=== PATIENT | female | born 1995 | race Hispanic/Latino ===

== ENCOUNTER 2017-12-08 09:53 | Emergency (ER) | payer OTHER ==
[2017-12-08] MEDS: predniSONE 20 MG TAB PO (10:34)
[2017-12-08] MEDS: FAMOTIDINE 20 MG TAB PO (10:34)
== END 2017-12-08 10:41 | disposition home or self-care (01) ==
LOC: M ED 09:53
DX: L25.8 Unspecified contact dermatitis due to other agents (principal); B36.0 Pityriasis versicolor
CPT/HCPCS: 99282

== ENCOUNTER 2018-01-08 08:11 | Emergency (ER) | payer OTHER ==
[2018-01-08] MEDS: NS 1,000 ML IV ×2 (09:10→11:10)
[2018-01-08 09:13] LABS: BASO % 0.5 % (0.0-1.0); EOS % 0.5 % (0.0-3.0); HEMATOCRIT 39.1 % (36.0-47.0); HEMOGLOBIN 13.1 g/dl (12.0-15.5); IMMATURE GRANULOCYTE % 0.4 % (0-3.0); LYMPH # 1.3 10^3/uL (1.5-6.5); LYMPH % 23.4 % (24.0-44.0); MEAN CORPUSCULAR HEMOGLOBIN 30.5 pg (27.0-33.0); MEAN CORPUSCULAR HGB CONC 33.5 g/dl (32.0-36.5); MEAN CORPUSCULAR VOLUME 90.9 fl (80.0-96.0); MONO # 0.3 10^3/uL (0.0-0.8); MONO % 5.3 % (0.0-5.0); NEUTROPHILS # 3.9 10^3/uL (1.8-7.7); NEUTROPHILS % 69.9 % (36.0-66.0); PLATELET COUNT, AUTOMATED 273 10^3/uL (150-450); RED CELL DISTRIBUTION WIDTH 12.6 % (11.5-14.5); WHITE BLOOD COUNT 5.6 10^3/uL (4.0-10.0)
[2018-01-08 09:26] LABS: CONTROL LINE HCG INT CTR LINE PRESENT; HCG, SERUM QUALITATIVE NEGATIVE (NEGATIVE)
[2018-01-08 09:32] LABS: ANION GAP 10 MEQ/L (8-16); BLOOD UREA NITROGEN 9 MG/DL (7-18); CALCIUM LEVEL 9.1 MG/DL (8.5-10.1); CARBON DIOXIDE LEVEL 23 MEQ/L (21-32); CHLORIDE LEVEL 110 MEQ/L (98-107); CPK CREATINE PHOSPHOKINASE 728 U/L (26-192); CREATININE FOR GFR 1.09 MG/DL (0.55-1.30); GLOMERULAR FILTRATION RATE > 60.0 (>60); GLUCOSE, FASTING 92 MG/DL (70-100); POTASSIUM SERUM 3.9 MEQ/L (3.5-5.1); SODIUM LEVEL 143 MEQ/L (136-145)
[2018-01-08 09:34] LABS: D-DIMER QUANT 272.2 ng/ml (<500)
[2018-01-08] MEDS: ACETAMINOPHEN TAB 650MG DOSE (2X325MG) PO (09:54)
[2018-01-08] MEDS: IPRATROPIUM 0.5MG/ALBUTEROL 2.5MG INH SOL UD 3ML (DUONEB)(J7620) NEB (10:00)
[2018-01-08 10:05] LABS: FREE T4 1.25 NG/DL (0.76-1.46)
[2018-01-08] MEDS: methylPREDNISolone INJ 125 MG/2 ML VIAL (J2930) IV (11:10)
== END 2018-01-08 12:35 | disposition home or self-care (01) ==
LOC: M ED 08:11
DX: E86.0 Dehydration (principal); R06.00 Dyspnea, unspecified; R00.0 Tachycardia, unspecified; J45.909 Unspecified asthma, uncomplicated; F41.9 Anxiety disorder, unspecified; M54.5 Low back pain; Z79.3 Long term (current) use of hormonal contraceptives
CPT/HCPCS: J2930

== ENCOUNTER 2018-06-19 09:46 | Emergency (ER) | payer OTHER ==
[~2018-06-19] VITALS: Ht 160 cm; Wt 74.1 kg
[2018-06-19 09:46] VITALS: BP 129/66
[~2018-06-19 09:46] MED LIST: BENA25CA4 PO; KETO2AER2 EXT; PRED20TA PO; PRED50TA PO; PROAAER10; bcp
[2018-06-19] MEDS ORDERED: NASA30TA PO (09:59)
[2018-06-19] MEDS ORDERED: AMOX-CLAV PO (09:59)
[2018-06-19] MEDS ORDERED: VENL50TA2 PO (09:59)
[2018-06-19] MEDS ORDERED: MUCI600T37 PO (10:21)
[2018-06-19] MEDS ORDERED: SUDA1TAB3 PO (10:21)
[2018-06-19] MEDS ORDERED: FLON1SPR NARES (10:21)
[2018-06-19] MEDS ORDERED: IBUP-1022 PO (10:21)
== END 2018-06-19 10:33 | disposition home or self-care (01) ==
LOC: M ED 09:46
DX: R51 Headache (principal); Z79.899 Other long term (current) drug therapy; Z79.2 Long term (current) use of antibiotics

== ENCOUNTER 2018-08-07 11:26 | Emergency (ER) | payer OTHER ==
[~2018-08-07] VITALS: Ht 160 cm; Wt 77.4 kg
[~2018-08-07 11:26] MED LIST changes: +AMOX-CLAV PO; +FLON1SPR NARES; +IBUP-1022 PO; +MUCI600T37 PO; +NASA30TA PO; +SUDA1TAB3 PO; +VENL50TA2 PO
[2018-08-07] MEDS ORDERED: PRENCHW PO (11:37)
[2018-08-07 12:49] LABS: HEMATOCRIT 35.5 % (36.0-47.0); HEMOGLOBIN 11.8 g/dl (12.0-15.5); MEAN CORPUSCULAR HEMOGLOBIN 30.5 pg (27.0-33.0); MEAN CORPUSCULAR HGB CONC 33.2 g/dl (32.0-36.5); MEAN CORPUSCULAR VOLUME 91.7 fl (80.0-96.0); PLATELET COUNT, AUTOMATED 211 10^3/uL (150-450); RED BLOOD COUNT 3.87 10^6/uL (4.00-5.40); WHITE BLOOD COUNT 7.1 10^3/uL (4.0-10.0)
[2018-08-07 13:30] LABS: ABG BASE EXCESS -1.8 (-2.0-2.0); ABG HCO3 20.7 MEQ/L (22.0-26.0); ABG O2 SATURATION 98.8 % (95.0-99.0); ABG PARTIAL PRESSURE CO2 28.4 mmHg (35.0-45.0); ABG PARTIAL PRESSURE O2 122.9 mmHg (75.0-100.0); ABG TOTAL CO2 21.5 MEQ/L (22.0-29.0)
[2018-08-07 13:30] LABS: BLOOD UREA NITROGEN 8 MG/DL (7-18); CALCIUM LEVEL 8.8 MG/DL (8.5-10.1); CARBON DIOXIDE LEVEL 25 MEQ/L (21-32); CHLORIDE LEVEL 106 MEQ/L (98-107); CK-MB VALUE MASS < 1.0 NG/ML (<3.6); CPK CREATINE PHOSPHOKINASE 72 U/L (26-192); CREATININE FOR GFR 0.49 MG/DL (0.55-1.30); GLOMERULAR FILTRATION RATE > 60.0 (>60); GLUCOSE, FASTING 79 MG/DL (70-100); MB/CK RELATIVE INDEX 1.39 (< OR =4); SODIUM LEVEL 138 MEQ/L (136-145); TROPONIN I < 0.02 NG/ML (< 0.10)
[2018-08-07 14:59] VITALS: O2SAT 100
[2018-08-07 16:00] VITALS: BP 111/54
--- NOTE | 2018-08-07 16:04 | REP ---
FIRST TRIMESTER ULTRASOUND: Real-time sonographic evaluation of the gravid uterus is performed. There is a single living intrauterine gestation. The estimated gestational age is 9 weeks 5 days based on a crown rump length of 29 mm. EDC 03/07/2019. heart rate 168 beats per minute. There is no subchronic hemorrhage. No maternal adnexal region abnormality is seen. Electronically Signed by Guerrero Hector MD 08/12/2018 09:12 A
--- NOTE | 2018-08-07 20:44 | ECGEPIP ---
Stationary ECG Study [facility] - ED Test Date: 2018-08-07 Pat Name: LUIS ROBERTS Department: Room: - Gender: F Dismantler: CT : 1995 Requested By: Bryce Daniel Order Number: [id number] Reading MD: Bryce Calix Measurements Intervals [place] Rate: 46 P: 66 MI: 149 QRS: 64 QRSD: 92 T: 26 QT: 423 QTc: 371 Interpretive Statements SINUS BRADYCARDIA WITH SINUS ARRHYTHMIA BENIGN EARLY REPOLARIZATION NSTTW ABNORMALITIES SIMILAR TO 01/08/18 Electronically Signed On 08-07-2018 20:44:30 EDT by Bryce Calix
== END 2018-08-07 16:19 | disposition home or self-care (01) ==
LOC: M ED 11:26
DX: R06.09 Other forms of dyspnea (principal); Z33.1 Pregnant state, incidental

== ENCOUNTER 2019-01-29 18:51 | Outpatient (CLI) | payer OTHER ==
[~2019-01-29] VITALS: Ht 160 cm; Wt 86.5 kg
[~2019-01-29 18:51] MED LIST changes: +PRENCHW PO
[2019-01-29 19:05] VITALS: BP 117/62
--- NOTE | 2019-01-30 09:21 | HPE ---
DATE OF ADMISSION: 01/29/2019 23-year-old 1. 05/29/2018 EDC 03/05/2019 35 and 5 weeks of gestation with a history of 2 days of no movement. Risk factor she has anxiety, depression on Zoloft. LABORATORY DATA: A+, HIV negative, hep negative, RPR negative, rubella immune. Varicella immune. 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 Gonorrhea and chlamydia negative. An early 1-hour glucose was 100, 28-week glucose was 129. GBS is not available. PHYSICAL EXAMINATION: No distress. Symphysis fundus height is 35, vertex presenting. Category one strip. No contractions. No vaginal loss or bleeding. Blood pressure 117/62, respirations 18, pulse 62 and temperature 98.5. Urine is 1005 pH 7 and negative. The rest of the examination is unremarkable. Normocephalic, atraumatic. Neck: Full range of motion. Pupils equal and reactive to light. Distal pulses symmetric. No evidence of DVT, PE or superficial phlebitis. Chest is clear bilaterally bases, No wheezes or rhonchi. No CVA tenderness. No rashes, lesions or pruritus. No arthralgia, myalgia. No complaint joint pain. No complaint cough, wheeze, shortness of breath or dyspnea on exertion. 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 MEDICATIONS: and Zoloft. We discussed kick chart, premature rupture of membranes and bleeding, when to call the provider, when to come in. The patient has a centering appointment next week. She is to maintain that appointment and otherwise she is discharged undelivered with precautions.
== END 2019-01-29 20:45 | disposition home or self-care (01) ==
LOC: M LDO 18:51
PROVIDERS: ATTEND Advanced Practice Midwife
DX: O36.8130 Decreased fetal movements, third trimester, not applicable or unspecified (principal); Z3A.35 35 weeks gestation of pregnancy
CPT/HCPCS: 59025; G0378; G0463

== ENCOUNTER 2019-03-01 04:00 | Inpatient (IN) | payer OTHER ==
[~2019-03-01] VITALS: Ht 160 cm; Wt 88.1 kg
[2019-03-01] VITALS (32 sets, daily range): BP systolic 107–150; BP diastolic 55–94
[2019-03-01] MEDS ORDERED: LACTATED RINGER'S 1000 ML IV STA (06:22)
[2019-03-01] MEDS ORDERED: PENICILLIN G POTASSIUM IV 5 MU in D5W MINI-BAG PLUS 100 ML IV STA (06:22)
--- NOTE | 2019-03-01 06:39 | HPEPDOC ---
Obstetrical History & Physical General Date of Admission Mar 01, 2019 at 06:23 History of Present Illness 23 yo at 39+3 weeks today by LMP of 29May2018 c/w 8+5 week US on 29Jul2018 presented to L&D with the complaint of leakage of clear fluid starting at 0200 this AM and contractions. She denies any bleeding. She endorses movement. Chief Complaint: Contractions, term, LOF, term Information Provided By: Patient Age: 23 : 1 Term: 0 Pre-term: 0 Abortions: 0 Livin Care Care: Good Care Dating Final EDC: Mar 05, 2019 Final EDC for Daily Update: Mar 05, 2019 Final EDC by: LMP (LMP of 29May2018) LMP: May 29, 2018 1st Trimester Date: Jul 29, 2018 (8+5 week US on 29Jul2018 c/w LMP dating. DINORAH remains 05Mar2019) Antepartum Course Diagnos(e)s Overweight --> Normal glucose screening Depression/Anxiety --> stable with zoloft and counseling Childhood asthma --> no meds pelviectasis --> resolved with follow up imaging Past Medical History Past Obstetrical History : Past Obstetrical History: [facility] [employer] History: No pertinent history Past Medical History Medical History Depression/Anxiety Overweight Childhood asthma Surgical History: Cleves teeth Family History Significant Family History: No pertinent family hx Family History Non contributory Social History Marital Status: Family situation: Spouse/partner home Psychosocial History: Anxiety, Depression * Smoker: non-smoker Alcohol: Denies Drugs: denies Imunizations Tdap status: current Influenza Status: current Allergies Coded Allergies: No Known Allergies (Unverified , 03/01/19) Medications Scheduled Pnv No.118/Iron Fumarate/FA ( 19 Chewable Tablet) 1 Chw Chw, 1 TAB PO DAILY Physical Examination Physical Examination Chaperoned by L&D RN GENERAL: Alert and oriented times three. ABDOMEN: Gravid and non-tender to touch. FETUS: Is vertex (VTX) by sterile vaginal examination (SVE), fetus is vertex (VTX) by [place]. EXTREMITIES: No edema. Pelvic exam - Wet external genitalia. Speculum inserted into the vagina. Gross pooling of clear fluid seen in vaginal vault. Swabs obtained. Speculum removed. Nitrazine - positive Ferning slide - positive Vital Signs/I&O Vital Signs Date Time Temp Pulse Resp B/P (MAP) Pulse Ox O2 Delivery O2 Flow Rate FiO2 03/01/19 05:33 68 18 131/86 (101) 03/01/19 04:30 97.6 Laboratory Data Urine Culture: No Growth Pertinent Laboratoy Data Blood Type: A+ RBC Antibody Screen: Negative HIV: Negative Hepatitis B: Negative Hepatitis C: Unknown Rapid Plasma Reagin: Nonreactive Rubella: Immune Varicella: Immune Chlamydia/Gonorrhea: Negative Group B Streptococcus: Positive Quad Screen Test: Unknown Cystic Fibrosis: Negative Glucose Tolerance Test: 129 (early 1hr GTT 100, then 129 at 24-28 weeks) Anatomy Ultrasound Placenta Location: Posterior Normal Anatomy: Yes ( bilateral pelviectasis resolved with repeat imaging) Placenta Previa: No Steroid Therapy Steroid Therapy: No Vaginal Examination Dilation: 3 cm Effacement: 80% Station: -2 Cervical Consistency: Soft Cervical Position: Posterior Presentation: Cephalic presentation Position: Vertex (occiput) Assessment Heart Rate (FHR): 135 Variability: Moderate Accelerations: Positive Decelerations: None Tocometer Contractions: Yes Frequency: irregular Strength: palpated as moderate Assessment/Plan Assessment 23 yo at 39+3 weeks gestation presented with ruptured membranes and early labor. Plan Admit to L&D for expectant management of labor. Will augment as clinically indicated. Apply IV fluids. CBC, T+S Start PCN for GBS prophylaxis. Regular diet. Patient may have epidural if desired. We discussed augmentation of labor with pitocin if necessary. Anticipate . DO RANDOLPH Gabriel CHRISTOPHER J. DO Mar 01, 2019 06:39
[2019-03-01 07:28] LABS: HEMATOCRIT 33.3 % (36.0-47.0); HEMOGLOBIN 11.3 g/dl (12.0-15.5); MEAN CORPUSCULAR HEMOGLOBIN 31.1 pg (27.0-33.0); MEAN CORPUSCULAR HGB CONC 33.9 g/dl (32.0-36.5); MEAN CORPUSCULAR VOLUME 91.7 fl (80.0-96.0); PLATELET COUNT, AUTOMATED 223 10^3/uL (150-450); RED BLOOD COUNT 3.63 10^6/uL (4.00-5.40); WHITE BLOOD COUNT 9.6 10^3/uL (4.0-10.0)
[2019-03-01] MEDS ORDERED: FENTANYL 2MCG/ML ROPIVACAINE 0.2% IN 0.9% NACL 100ML IVBAG As Ordered ONE (08:48)
[2019-03-01] MEDS: LR 1,000 ML IV SCH ×3 (08:59→19:37)
[2019-03-01] MEDS: FENTANYL/ROPIVACAINE/NACL BAG 100 ML EPIDURAL SCH ×2 (09:42→17:34)
[2019-03-01] MEDS ORDERED: EPIDURAL COMMENT XX SCH (10:45)
[2019-03-01] MEDS ORDERED: ePHEDrine SULFATE 25 MG/5 ML(5MG/ML) SYRINGE IV PRN (10:45)
[2019-03-01] MEDS ORDERED: ONDANSETRON 4MG/2ML VIAL (J2405) IV PRN (10:45)
[2019-03-01] MEDS ORDERED: diphenhydrAMINE INJ 50MG/ML VIAL (J1200) IV PRN (10:45)
[2019-03-01] MEDS ORDERED: LACTATED RINGER'S 1000 ML IV PRN (10:45)
[2019-03-01] MEDS ORDERED: EPIDURAL/PCA KEYS XX PRN (10:45)
[2019-03-01] MEDS ORDERED: NALOXONE INJ 0.4 MG/1 ML VIAL (J2310) IV PRN (10:45)
[2019-03-01] MEDS ORDERED: REFRIGERATOR IV KEYS XX PRN (10:45)
[2019-03-01] MEDS ORDERED: OXYTOCIN DRIP 30 UNITS in IV 1 EA IV SCH ×2 (11:15→21:45)
[2019-03-01] MEDS: PENICILLIN G POTASSIUM IV 2.5 MU in IV 1 EA IV SCH ×3 (11:36→19:45)
--- NOTE | 2019-03-01 19:16 | IPNPDOC ---
Obstetrical Progress Note Date of Service Mar 01, 2019 Subjective 23 yo at 39+3 admitted for PROM at 0200 this AM. She was augmented with pitocin and was turned off due to recurrent variable decel. she had received amnioinfusion which helped resolved the variable decels. Currently alma rosa on her own. Last checked to be 9.5cm with anterior lip at around 1800. patient feeling pressure with contractions. vitals: normal nad, laying in bed fht: 145/mod stephon/no accel/no decel IUPC: 150-180 MVU a/p patient in active labor. recheck 2 hrs after last check, sooner as indicated. continue pcn for gbs positive. DO Leandra Objective Vital Signs Date Time Temp Pulse Resp B/P (MAP) Pulse Ox O2 Delivery O2 Flow Rate FiO2 03/01/19 18:41 70 18 137/75 (95) 03/01/19 18:11 98.2 03/01/19 17:08 99 Assessment Heart Rate (FHR): 145 Variability: Moderate Accelerations: None Decelerations: None Heart Rate Tracing: Category I Tocometer Contractions: Yes DUTCH RAMIREZ DO Mar 01, 2019 19:15
--- NOTE | 2019-03-01 20:36 | IPNPDOC ---
Obstetrical Progress Note Date of Service Mar 01, 2019 Subjective patient comfortable with epidural. fht: 140/mod stephon/pos accel/no decel toco: 150-180 MVU's ce: c/c/+2 a/p patient at stage 2. trial of push to start. continue with pushing if patient brings baby down well. may need to allow for passive descent for 1 hr if patient does not push well. DO Leandra Objective Vital Signs Date Time Temp Pulse Resp B/P (MAP) Pulse Ox O2 Delivery O2 Flow Rate FiO2 03/01/19 18:41 70 18 137/75 (95) 03/01/19 18:11 98.2 03/01/19 17:08 99 Tocometer Contractions: Yes Sterile Vaginal Examination Dilation: complete Effacement (%): 100% Station: +2 Cervical Consistency: Soft DUTCH RAMIREZ DO Mar 01, 2019 20:36
[2019-03-01] MEDS ORDERED: MEASLES,MUMPS,RUBELLA VACCINE INJ (MMR-II) (90707) SC SCH (21:45)
[2019-03-01] MEDS ORDERED: ACETAMINOPHEN TAB 650MG DOSE (2X325MG) PO PRN (21:45)
[2019-03-01] MEDS ORDERED: DIBUCAINE 1% OINTMENT 30GM TOP PRN (21:45)
[2019-03-01] MEDS ORDERED: RHOGAM 300 MCG (1500 IU) INJ (J2790) IM SCH (21:45)
[2019-03-01] MEDS ORDERED: DOCUSATE SODIUM 100 MG CAP PO PRN (21:45)
--- NOTE | 2019-03-01 21:45 | DNPDOC ---
[facility] Delivery Note Delivery Note DATE OF DELIVERY: 01Mar2019 PREDELIVERY DIAGNOSIS: 39+3wks gestation POST DELIVERY DIAGNOSIS: Delivered. PROCEDURE: PAUL ENGLISH AND READING INSTRUCTOR: Dr. Melissa Mobley DO ANESTHESIA: epidural. ESTIMATED BLOOD LOSS: mL. FINDINGS: 7 pound 3 ounce (3260gm) male , Score 7/8 DELIVERY SUMMARY: With good maternal effort baby delivered OA, restituted LOT. anterior shoulder delivered followed by posterior shoulder and compound left hand. body followed with ease. baby placed on maternal abdomen, cord allowed to stop pulsating. cord clamped x 2 and cut by FOB. pitocin bolus started. placenta delivered spontaneously. fundus massaged firm. inspection reveals 2nd degree mild laceration repaired with 2-O and 3-O vicryl. EBL 200cc. Baby and mother bonding when I left the room. DO ASHLEY Mobley LUAT N. DO Mar 01, 2019 21:45
[2019-03-01] MEDS: IBUPROFEN 800 MG TAB PO PRN (23:57)
--- NOTE | 2019-03-02 05:27 | IPNPDOC ---
Progress Note Date of Service: Mar 02, 2019 Day#: 1 Progress Note SUBJECT: patient is a G1 now p1 status post uncomplicated spontaneous vaginal delivery with post 2nd degree vaginal laceration and repair ppd #2. She has been ambulating, voiding spontaneously without issue and tolerating regular diet. Having some issues with breast feeding. Reports lochia is like a normal period. Denies WILD/N/V/Change in vision. Plans for norqd for contraceptive. OBJECTIVE: VITAL SIGNS: noted some mild range, afebrile. Alert and oriented times three. Abdomen: Fundus firm at U-2. Soft, NTTP. ASSESSMENT: Patient is ppd #1, doing well. Noted mild range BP, asymptomatic. PLAN: 1. continue routine ppc. 2. monitor BP 3. minipill for contraception 4. instructions for spouse to supervisor opening and picking meds at [facility] 5. encourage bf consult to see patient today and ambulating 6. anticipate d/c home ppd #2 arash, VS, I&O, 24H, Fishbone Vital Signs/I&O Vital Signs Date Time Temp Pulse Resp B/P (MAP) Pulse Ox O2 Delivery O2 Flow Rate FiO2 03/01/19 23:50 97.8 54 16 150/86 (107) 99 I&O- Last 24 Hours up to 6 AM 03/02/19 05:59 Intake Total 4150 ml Output Total 2125 ml Balance 2025 ml Laboratory Data 24H LABS Laboratory Tests 2 03/01/19 06:29: Serology Scanned Report Hepatitis B Testing 03/01/19 07:03: Nucleated Red Blood Cells % (auto) 0.0, Syphilis Serology NONREACTIVE CBC/BMP Laboratory Tests 03/01/19 07:03 Red Blood Count 3.63 L, Mean Corpuscular Volume 91.7, Mean Corpuscular Hemoglobin 31.1, Mean Corpuscular Hemoglobin Concent 33.9, Red Cell Distribution Width 12.7 DUTCH RAMIREZ DO Mar 02, 2019 05:27
[2019-03-02 06:00] VITALS: BP 135/77
[2019-03-02] MEDS: PRENATAL VITAMINS CHEWABLE TABLET PO SCH (11:21)
[2019-03-02 18:00] VITALS: BP 135/93
[2019-03-02] MEDS: IBUPROFEN 800 MG TAB PO PRN (19:55)
[2019-03-03 06:12] VITALS: BP 129/76
[2019-03-03 06:19] LABS: HEMOGLOBIN 10.2 g/dl (12.0-15.5); MEAN CORPUSCULAR HEMOGLOBIN 30.9 pg (27.0-33.0); MEAN CORPUSCULAR VOLUME 90.9 fl (80.0-96.0); PLATELET COUNT, AUTOMATED 200 10^3/uL (150-450); WHITE BLOOD COUNT 7.5 10^3/uL (4.0-10.0)
[2019-03-03 06:48] LABS: ALBUMIN 2.1 GM/DL (3.2-5.2); ALT/SGPT 22 U/L (12-78); BILIRUBIN,TOTAL 0.4 MG/DL (0.2-1.0); BLOOD UREA NITROGEN 7 MG/DL (7-18); CARBON DIOXIDE LEVEL 27 MEQ/L (21-32); CHLORIDE LEVEL 109 MEQ/L (98-107); CREATININE FOR GFR 0.57 MG/DL (0.55-1.30); GLOMERULAR FILTRATION RATE > 60.0 (>60); GLUCOSE, FASTING 69 MG/DL (70-100); POTASSIUM SERUM 3.5 MEQ/L (3.5-5.1); SODIUM LEVEL 143 MEQ/L (136-145); TOTAL PROTEIN 4.9 GM/DL (6.4-8.2)
--- NOTE | 2019-03-03 07:10 | DS.PDOC ---
Discharge Summary General Date of Admission Mar 01, 2019 at 06:23 Date of Discharge Mar 03, 2019 Attending Physician: Yenni Rodriguez MD Specialist/Consultants Involve: A Specialist/Consultants Involve Anesthesia Discharge Summary PROCEDURES PERFORMED DURING STAY: Pitocin Augmentation, External Female Monitoring, Spontaneous Vaginal Delivery, Care ADMITTING DIAGNOSES: 1. Spontaneous Rupture of Membranes DISCHARGE DIAGNOSES: 1. Vaginal Delivery COMPLICATIONS/CHIEF COMPLAINT: Labor Check. HISTORY OF PRESENT ILLNESS: 23y/o presenting for contractions and leakage of fluid at term. HOSPITAL COURSE: Ms. Mendoza is a 23y/o who was admitted for SROM. Following Pitocin augmentation, she proceeded to have an uncomplicated of 3260 Female , with Apgars 7/8. She had a second degree laceration. EBL 2 00cc. The patient had an course notable for several mild range blood pressures. She had an otherwise uncomplicated course. On the day of discharge, she was tolerating regular diet, voiding without difficulty, lochia was diminishing and she was tolerating PO diet. DISCHARGE MEDICATIONS: Please see below. ALLERGIES: Please see below. PHYSICAL EXAMINATION ON DISCHARGE: VITAL SIGNS: Please see below. GENERAL: Alert and oriented, no acute distress HEENT: Normocephalic, atraumatic CARDIOVASCULAR EXAMINATION: Well perfused RESPIRATORY EXAMINATION: CTAB, no crackles, wheezes or rhonchi ABDOMINAL EXAMINATION: Soft, NT/ND. U-2 EXTREMITIES: Bilateral 2+ edema, no calf tenderness or erythema SKIN: No abnormalities. PSYCHIATRIC EXAMINATION: Normal mood and affect LABORATORY DATA: Please see below. IMAGING:none PROGNOSIS: Improved ACTIVITY: As tolerated. Nothing inside the vagina for 6 weeks. DIET: Regular. DISCHARGE PLAN: -Motrin and Tylenol for pain control -Continue PNV while breast feeding -Rubella immune -RH positive -Contraception: Desires NorQD. Medications placed in [facility] -F/u Blood pressure check at [facility] DISPOSITION: Discharged home in stable condition. DISCHARGE INSTRUCTIONS: 1. Call [facility] to make 6 week appointment 2. Please walk in to [facility] in 2-3 days for blood pressure check. You can come anytime either from 0800 to 1200 or from 1300 to 1500. ITEMS TO FOLLOWUP ON ON OUTPATIENT: 1. Blood Pressure Check DISCHARGE CONDITION: 1Stable TIME SPENT ON DISCHARGE: Greater than 30 minutes. Vital Signs/I&Os Vital Signs Date Time Temp Pulse Resp B/P (MAP) Pulse Ox O2 Delivery O2 Flow Rate FiO2 03/03/19 06:12 99.1 55 18 129/76 (93) 03/02/19 18:00 100 Laboratory Data Labs 24H Laboratory Tests 2 03/03/19 06:04: Nucleated Red Blood Cells % (auto) 0.0, Anion Gap 7L, Glomerular Filtration Rate > 60.0, Blood Urea Nitrogen 7, Creatinine 0.57, Sodium Level 143, Potassium Level 3.5, Chloride Level 109H, Carbon Dioxide Level 27, Calcium Level 8.0L, Aspartate Amino Transf (AST/SGOT) 29, Alanine Aminotransferase (ALT/SGPT) 22, Alkaline Phosphatase 161H, Total Bilirubin 0.4, Total Protein 4.9L, Albumin 2.1L, Albumin/Globulin Ratio 0.75L CBC/BMP Laboratory Tests 03/03/19 06:04 Red Blood Count 3.30 L, Mean Corpuscular Volume 90.9, Mean Corpuscular H emoglobin 30.9, Mean Corpuscular Hemoglobin Concent 34.0, Red Cell Distribution Width 12.6, Calcium Level 8.0 L, Aspartate Amino Transf (AST/SGOT) 29, Alanine Aminotransferase (ALT/SGPT) 22, Alkaline Phosphatase 161 H, Total Bilirubin 0.4, Total Protein 4.9 L, Albumin 2.1 L Discharge Medications Scheduled Pnv No.118/Iron Fumarate/FA ( 19 Chewable Tablet) 1 Chw Chw, 1 TAB PO DAILY, (Reported) Scheduled PRN Acetaminophen (Acetaminophen) 325 Mg Tablet, 650 MG PO Q4HP PRN for FEVER Dibucaine (Dibucaine) 28 Gm Oint...g., 0 DOSE TOP Q4HP PRN for PAIN Docusate Sodium (Colace) 100 Mg Capsule, 100 MG PO QHSP PRN for CONSTIPATION Ibuprofen (Ibuprofen) 800 Mg Tablet, 800 MG PO Q8HP PRN for PAIN Allergies Coded Allergies: No Known Allergies (Unverified , 03/01/19) Yenni Rodriguez MD Mar 03, 2019 07:09
[2019-03-03] MEDS ORDERED: IBUP80TA PO (07:35)
[2019-03-03] MEDS ORDERED: DIBU10OI TOP (07:35)
[2019-03-03] MEDS ORDERED: ACET1TAB55 PO (07:35)
[2019-03-03] MEDS ORDERED: COLA100C5 PO (07:35)
[2019-03-03] MEDS: IBUPROFEN 800 MG TAB PO PRN (07:54)
[2019-03-03] MEDS: PRENATAL VITAMINS CHEWABLE TABLET PO SCH (07:54)
[2019-03-03] MEDS ORDERED: INFLUENZA QUADRIVALENT PF VACCINE 0.5ML SYRINGE (90686) IM ONE (09:00)
== END 2019-03-03 11:10 | disposition home or self-care (01) | DRG 807 ==
LOC: M LDO 04:00 → M LDI 06:23 → M OBS 23:23
PROVIDERS: ADMIT Obstetrics & Gynecology; ATTEND Obstetrics & Gynecology
PROC: 10E0XZZ Delivery of Products of Conception, External Approach (ICD-10-PCS; principal; 2019-03-01)
PROC: 0KQM0ZZ Repair Perineum Muscle, Open Approach (ICD-10-PCS; 2019-03-01)
DX: O42.02 Full-term premature rupture of membranes, onset of labor within 24 hours of rupture (principal); Z37.0 Single live birth; Z3A.39 39 weeks gestation of pregnancy; O99.824 Streptococcus B carrier state complicating childbirth; O76 Abnormality in fetal heart rate and rhythm complicating labor and delivery; O32.6XX0 Maternal care for compound presentation, not applicable or unspecified; O70.1 Second degree perineal laceration during delivery